=== PATIENT | male | born 1955 | race Caucasian/White ===

== ENCOUNTER 2022-09-09 13:45 | Outpatient (CLI) | payer MEDICARE, BC, SELFPAY ==
[2022-09-12 14:11] LABS: Prostate Specific Antigen Free <0.1 ng/mL; Prostate Specific Antigen%Free <14 %; Prostate Specific AntigenTotal 0.7 ng/mL (0.0-4.0)
== END 2022-09-09 13:46 | disposition home or self-care (01) ==
LOC: FRMREF 13:46
PROVIDERS: Visit Provider Family Medicine
DX: Z00.00 Encounter for general adult medical examination without abnormal findings (principal); C61 Malignant neoplasm of prostate
CPT/HCPCS: 84153; 84154

== ENCOUNTER 2023-12-28 10:19 | Outpatient (CLI) | payer MEDICARE, BC, SELFPAY | END 2023-12-28 10:20 | disposition home or self-care (01) | PROVIDERS: PCP Family Medicine; Visit Provider Family Medicine | DX: C61 Malignant neoplasm of prostate (principal); Z13.220 Encounter for screening for lipoid disorders; Z13.228 Encounter for screening for other metabolic disorders | CPT/HCPCS: 80053; 80061; G0103 ==

== ENCOUNTER 2023-12-31 10:43 | Outpatient (CLI) | payer MEDICARE, BC, SELFPAY | END 2023-12-31 10:44 | disposition home or self-care (01) | LOC: NFLDREF 01-03 06:48 | PROVIDERS: PCP Family Medicine; Referring Provider Family Medicine; Visit Provider Family Medicine | DX: E87.0 Hyperosmolality and hypernatremia (principal) | CPT/HCPCS: 80048 ==